=== PATIENT | male | born 1935 | race Caucasian/White ===

== ENCOUNTER 2017-04-08 10:28 | Emergency (ER) | payer OTHER, BC ==
[2017-04-08 13:07] LABS: UA SPECIFIC GRAVITY <=1.005 (1.005-1.035); microscopic required? YES; urine erythrocyte 3+ (NEGATIVE)
[2017-04-08 13:45] LABS: PLATELET COUNT 212 x10^3mcL (130-400)
[2017-04-08 13:46] LABS: BASOPHIL % 0 % (0-2); RED CELL DISTRIBUTION WIDTH 14.8 % (11.5-14.5)
[2017-04-08 14:01] LABS: CALCIUM 10.7 mg/dL (8.5-10.1); CARBON DIOXIDE 22.3 mmol/L (21-32); CHLORIDE SERUM 102 mmol/L (98-107); CREATININE SERUM 1.2 mg/dL (0.7-1.3); GLUCOSE SERUM 169 mg/dL (74-106); POTASSIUM SERUM 4.6 mmol/L (3.5-5.1); SODIUM SERUM 135 mmol/L (136-145)
[2017-04-08 15:23] VITALS: BP 111/72
== END 2017-04-08 15:23 | disposition short-term general hospital (02) ==
LOC: ED 10:28
PROVIDERS: Emergency Medicine
DX: N39.0 Urinary tract infection, site not specified (principal); N40.0 Benign prostatic hyperplasia without lower urinary tract symptoms

== ENCOUNTER 2019-09-16 16:00 | Emergency (ER) | payer OTHER, BC ==
[~2019-09-16] VITALS: Ht 182.9 cm; Wt 66.9 kg
[2019-09-16 16:05] VITALS: BP 124/83; Ht 182.9 cm; Wt 66.9 kg
== END 2019-09-16 16:25 | disposition home or self-care (01) ==
LOC: ED 16:00
DX: T83.018A Breakdown (mechanical) of other urinary catheter, initial encounter (principal); Z98.890 Other specified postprocedural states